=== PATIENT | male | born 1945 | race Caucasian/White ===

== ENCOUNTER 2017-11-15 06:41 | Inpatient (IN) | payer MEDICARE, MEDICAID ==
[~2017-11-15] VITALS: Ht 180.3 cm; Wt 104.3 kg
[2017-11-15] VITALS (7 sets, daily range): BP systolic 104–149; BP diastolic 50–76
[2017-11-15] MEDS ORDERED: TRANEXAMIC ACID 3,000 MG in SODIUM CHLORIDE IRRIG SOLUTION 70 ML IR ONE (07:30)
[2017-11-15] MEDS ORDERED: oxyCODONE HCL SR 10MG TAB.SR.12H PO ONE (08:10)
[2017-11-15] MEDS ORDERED: CELECOXIB 100 MG CAPSULE ONE (08:11)
[2017-11-15] MEDS ORDERED: CEFAZOLIN SODIUM/DEXTROSE,ISO 50 ML IV ONE (08:11)
[2017-11-15] MEDS ORDERED: ACETAMINOPHEN 325 MG TABLET ONE (08:12)
[2017-11-15] MEDS ORDERED: BUPIVACAINE 0.75% DEXT-PF 2 ML AMPUL ONE (08:38)
[2017-11-15] MEDS ORDERED: MORPHINE SULFATE/PF 10 MG/10ML (1MG/ML) AMPUL ONE (08:38)
[2017-11-15] MEDS ORDERED: BUPIVACAINE 0.25% 75 MG/30 ML VIAL ONE (08:39)
[2017-11-15] MEDS ORDERED: KETOROLAC TROMETHAMINE INJ 30 MG/ML VIAL ONE (08:39)
[2017-11-15] MEDS ORDERED: BACITRACIN 50000 UNITS/VIAL ONE (08:39)
[2017-11-15] MEDS ORDERED: DESFLURANE 240 ML BOTTLE IH ONE (09:24)
[2017-11-15] MEDS ORDERED: SEVOFLURANE 250 ML BOTTLE IH ONE (09:24)
[2017-11-15] MEDS ORDERED: HYDROMORPHONE INJ 2 MG/ML DISP.SYRIN ONE ×2 (10:46→10:58)
[2017-11-15] MEDS ORDERED: COLACE 250 MG CAPSULE PO PRN (11:30)
[2017-11-15] MEDS ORDERED: SENOKOT 8.6 MG TABLET PO PRN (11:30)
[2017-11-15] MEDS ORDERED: diphenhydrAMINE HCL 50 MG/ML VIAL IM PRN (11:30)
[2017-11-15] MEDS ORDERED: ONDANSETRON HCL/PF 4 MG/2 ML VIAL IVP PRN (11:30)
[2017-11-15] MEDS ORDERED: TYLENOL 650 MG TABLET PO PRN (11:30)
[2017-11-15] MEDS ORDERED: AMBIEN 5 MG TABLET PO PRN (11:30)
[2017-11-15] MEDS ORDERED: HYDROMORPHONE 1 MG/1 ML DISP.SYRIN IV PRN (11:30)
[2017-11-15] MEDS ORDERED: ZOFRAN 4mg/2ML IV PRN (11:30)
[2017-11-15] MEDS ORDERED: NALOXONE HCL 0.4 MG/ML AMPUL IV PRN ×2 (11:30→13:00)
[2017-11-15] MEDS ORDERED: DULCOLAX 10 MG/SUPP.RECT RC PRN (11:30)
--- NOTE | 2017-11-15 12:00 | NUR ---
tele project technician: notes received pt from recovery room with dx: s/p right tka. dressing to right lower ext in place. no drainage/discharge noted. pt had a spinal anesthesia and will be admitted in tele for 24 hours per protocol. awake, a/ox4. no c/o pain a this time. p.t. tx ordered. vss. no s/s of resp. distress noted. oriented to room and surroundings. will continue to monitor.
--- NOTE | 2017-11-15 12:15 | NUR ---
tele combat control: notes place pt on tele sr=[id number] with 1st degree av block. lunch ordered. instructed to call for assistance. will continue to monitor.
[2017-11-15] MEDS ORDERED: diphenhydrAMINE HCL 25 MG CAPSULE PO PRN (12:30)
[2017-11-15] MEDS ORDERED: MAGNESIUM HYDROXIDE 30 ML UDC PO PRN (12:30)
[2017-11-15] MEDS ORDERED: HYDROCODONE/APAP 10/325MG 1 EA TABLET PO PRN (12:30)
[2017-11-15] MEDS ORDERED: CLONIDINE HCL 0.1 MG TABLET PO PRN (12:30)
[2017-11-15] MEDS ORDERED: MAG HYDROX/AL HYDROX/SIMETH 30 ML UDC PO PRN (12:30)
[2017-11-15] MEDS ORDERED: BISACODYL SUPP (10 MG) 10 MG/SUPP.RECT SUPP.RECT RC PRN ×2 (12:30→14:00)
[2017-11-15] MEDS ORDERED: MENTHOL/CETYLPYRD (CEPACOL) 1 LOZ LOZENGE MM PRN (12:30)
[2017-11-15] MEDS ORDERED: MORPHINE SULFATE INJ 4 MG/ML DISP.SYRIN IM PRN (12:30)
[2017-11-15] MEDS: oxyCODONE IR immediate release 5 MG PO PRN (12:58)
--- NOTE | 2017-11-15 12:58 | NUR ---
tele mission planner: notes still awaiting for glass belt sander. f/u made to farrah (pharmacist). pt c/o 03/14 right knee pain, medicated with oxy ir 5mg po as ordered. instructed to call for assistance. will continue to monitor.
[2017-11-15] MEDS ORDERED: TRAMADOL HCL 50 MG TABLET PO PRN (13:00)
--- NOTE | 2017-11-15 13:40 | NUR ---
PT INSTRUCTED IS DID 1500 X 10 BREATHS WITH GOOD EFFORT
--- NOTE | 2017-11-15 13:58 | NUR ---
m/s recreation counselor: notes pt verbalized relief. p.t. in room at this time. cpm applied by therapist.
[2017-11-15] MEDS ORDERED: POLYETHYLENE GLYCOL 3350 17 GM POWD.PACK PO SCH (14:00)
[2017-11-15] MEDS ORDERED: BISACODYL (5 MG) 5 MG TABLET.DR PO PRN (14:00)
[2017-11-15] MEDS ORDERED: hydrALAZINE HCL 25 MG TABLET PO PRN (14:30)
[2017-11-15] MEDS: IV D5/0.45 NACL 1,000 ML IV PRN (14:31)
[2017-11-15] MEDS: HYDROMORPHONE MDV 30 MG in IV NS 0.9% 15 ML, PCA TOTAL VOLUME 1 BAG IV PRN ×3 (14:46)
--- NOTE | 2017-11-15 14:46 | NUR ---
m/s lot technician: notes prior to medical scientific liaison dilaudid 0.2mg dose with no loading dose, pt educated on how to use and educated on side effects by rn, pt verbalized understanding. instructed to call for assistance. will continue to monitor.
[2017-11-15] MEDS: DOCUSATE SODIUM 100 MG CAPSULE PO SCH (17:00)
--- NOTE | 2017-11-15 17:00 | NUR ---
tele catering service manager: notes pt resting comfortable with cpm machine on. voiced no discomfort. pt hasn't pushed his chair inspector and leveler, but aware if has pain. instructed to call for assistance. will continue to monitor.
[2017-11-15] MEDS: ANCEF 1 G in IV D5W 50 ML IV SCH (17:18)
[2017-11-15] MEDS: LOSARTAN POTASSIUM 50 MG TABLET PO SCH (17:35)
[2017-11-15] MEDS: METOPROLOL SUCCINATE 25 MG TAB.SR.24H PO SCH (17:35)
--- NOTE | 2017-11-15 18:15 | NUR ---
tele associate designer: notes pt remains on stable condition. denies any pain or any discomfort. pt hasn't had a dose of wig sales consultant of 0.2mg. educated pt on how to use wig sales consultant, but he has no pain as stated. needs attended. instructed to call for assistance. will continue to monitor.
--- NOTE | 2017-11-15 19:00 | NUR ---
tele afternoon nanny: notes pt c/o burning sensation upon urination, pt able to void. pt has hx of bph and request for troy cathether if still unable to void more. report given to erica martinez) for continuity of care. instructed to call for assistance. will continue to monitor.
--- NOTE | 2017-11-15 19:00 | NUR ---
LOAN EXPEDITOR NOTES CPM MACHINE OFF PER PATIENT REQUEST.
--- NOTE | 2017-11-15 19:35 | NUR ---
ROPER OPERATOR NOTES RECEIVED PATIENT IN BED , AWAKE ALERT AND ORIENTED X 4, ON CPM BUT PER PATIENT REQUEST TO REMOVE IT FOR NOW, CPM REMOVED, PATIENT ASSISTED WITH URINAL USE AT EDGE OF BED, AND PER PATIENT WANTED TO SIT IN CHAIR, PATIENT SAFELY TRANSFERRED TO CHAIR, AVOIDING WEIGHT TO RIGHT LEG WITH ASSISTANCE. IV SITE TO LEFT HAND INTACT AND PATENT , NO REDNESS NO INFILTRATION PRESENT, IVF FLUIDS RUNNING ORDERED,HERMELINDO BANDAGE TO RIGHT LEG INTACT AND DRY, PATIENT URINATED 300 ML YELLOW CLEAR, ORIENTED TO STAFF AND CALL LIGHT KEPT WITHIN REACH, SAFETY PRECAUTIONS IN PLACE ,FLUIDS OFFERED TOLERATED,, RESPIRATORY RATE 24 ON 02 VIA NC, PATIENT DENIES FEELING SHORT OF BREATH. NO CHANGE IN LOC NOTED ABLE TO HOLD CONVERSATION AND DENIES PAIN AT THIS TIME, WILL CONTINUE TO MONITOR. Addendum: 11/16/17 at 0058 by MELANIE ALVAREZ RN opening tele notes patient on continuous pulse ox monitoring x 24 hours
[2017-11-15] MEDS: TAMSULOSIN 0.4 MG CAP.SR.24H PO SCH (19:49)
--- NOTE | 2017-11-15 20:00 | NUR ---
TURKEY PINNER NOTES PATIENT NOTED TO USE ONE TIME 0.2MG OF MONITOR AND STORAGE BIN TENDER PUMP ,NOTED WITH FACIAL GRIMACING, WILL CONTINUE TO REASSESS.
--- NOTE | 2017-11-15 20:03 | NUR ---
MUNITIONS WORKER NOTES PATIENT REQUESTING FOR FLOMAX EARLY, PHARMACY MADE AWARE. GIVEN AT NEW TIME.
--- NOTE | 2017-11-15 20:30 | NUR ---
FLAME CUTTING MACHINE OPERATOR NOTES NOTED SENIOR CLINICIAN DOSE EFFECTIVE, PATIENT NOTED COMFORTABLE , DENIES PAIN OR DISCOMFORT AT THIS TIME.
[2017-11-15] MEDS ORDERED: HYDROMORPHONE INJ 2 MG/ML DISP.SYRIN IV PRN (21:00)
--- NOTE | 2017-11-15 21:21 | NUR ---
LEGAL OFFICE ADMINISTRATOR NOTES AWARE OF 1999 BLOOD PRESSURE OF 146/75 WITH NEW ORDER FOR NORVASC AT 2200 , NOTED AND CARRIED OUT.
--- NOTE | 2017-11-15 22:00 | NUR ---
LAMINATION INSPECTOR NOTES CPM ON, PER PATIENT REQUEST.
[2017-11-15] MEDS: AMLODIPINE BESYLATE 10 MG TABLET PO SCH (22:07)
[2017-11-15] MEDS: ASPIRIN EC 325 MG TABLET.DR PO SCH (22:07)
[2017-11-15] MEDS: PANTOPRAZOLE 40 MG TABLET.DR PO SCH (22:07)
[2017-11-16] VITALS: BP 154/78
--- NOTE | 2017-11-16 | NUR ---
DIRECTOR OF PUBLICATIONS NOTES CPM OFF.
[2017-11-16] MEDS: IV D5/0.45 NACL 1,000 ML IV PRN (00:25)
[2017-11-16] MEDS: ANCEF 1 G in IV D5W 50 ML IV SCH (00:25)
--- NOTE | 2017-11-16 00:30 | NUR ---
REGIONAL MARKETING DIRECTOR NOTES PER PATIENT REQUEST CPM ON
--- NOTE | 2017-11-16 03:30 | NUR ---
SENIOR DESIGNER/ART DIRECTOR NOTES PER PATIENT REQUEST CPM OFF.
[2017-11-16 04:00] VITALS: BP 131/72
--- NOTE | 2017-11-16 05:34 | NUR ---
WIND SCIENCE AND PLANNING NOTES PER PATIENT WILL ASK MORNING MD FOR VILLANUEVA CATHETER NOTED 2230 ML OF OUTPUT, MADE PATIENT AWARE OUTPUT IS WITHIN RANGE, ALSO MADE PATIENT AWARE THAT I CAN CALL MD, REFUSED STATED " HE DID NOT WANT AT THIS TIME HE WILL ASK IN AM" ABDOMEN ASSESSED, NOTED SOFT, NON TENDER, WILL CONTINUE TO MONITOR.
--- NOTE | 2017-11-16 06:31 | NUR ---
MOBILE PAINT SPECIALIST NOTES NOTED PATIENT UTILIZED TELEPHONE TRIAGE NURSE PUMP 4 TIMES DURING SHIFT, 0.8MG TOTAL, FOR PAIN RATING AT 7.NOTED EFFECTIVE WHEN USED.
--- NOTE | 2017-11-16 06:33 | NUR ---
SHEET ROCK HANGER CLOSING NOTES PATIENT IN BED , AWAKE ALERT AND ORIENTED X 4, CPM OFF AT THIS TIME PER PATIENT REQUEST TO REMOVE IT FOR NOW, CPM REMOVED, PATIENT ASSISTED WITH URINAL USE AT EDGE OF BED THROUGH OUT SHIFT TOTAL URINE OUTPUT 223O, IV SITE TO LEFT HAND INTACT AND PATENT , NO REDNESS NO INFILTRATION PRESENT, IVF FLUIDS RUNNING ORDERED,HERMELINDO BANDAGE TO RIGHT LEG INTACT AND DRY, URINE YELLOW CLEAR, ASKED PATIENT IF ALL NEEDS ATTENDED AT THIS TIME ,PER PATIENT YES,CALL LIGHT KEPT WITHIN REACH, SAFETY PRECAUTIONS IN PLACE ,FLUIDS OFFERED TOLERATED,RESPIRATORY RATE 18 ON 02 VIA 2 L NC, PATIENT DENIES FEELING SHORT OF BREATH. NO CHANGE IN LOC NOTED ABLE TO HOLD CONVERSATION AND DENIES PAIN AT THIS TIME PT UTILIZED MANAGER DEPARTMENT FOR PAIN MANAGEMENT , WILL CONTINUE TO MONITOR AND ENDORSE TO NEXT SHIFT. PATIENT REMAINS COMFORTABLE AT THIS TIME, ON CONTINUOUS 02 SAT MONITORING,WILL NO EPISODES OF LOW SATURATION NOTED THROUGHOUT SHIFT , REMAINED WITHIN NORMAL LIMITS.
[2017-11-16 06:44] LABS: CALCIUM, SERUM 8.6 mg/dL (8.5-10.1); CARBON DIOXIDE 27 mmol/L (21-32); CHLORIDE 103 mmol/L (98-107); CREATININE 0.8 mg/dL (0.6-1.3); GLUCOSE 151 mg/dL (74-106); MAGNESIUM 2.1 mg/dL (1.8-2.4); PHOSPHORUS 3.4 mg/dL (2.5-4.9); POTASSIUM 4.6 mmol/L (3.5-5.1); SODIUM SERUM 138 mmol/L (136-145); UREA NITROGEN, BLOOD 12 mg/dL (7-18)
[2017-11-16 07:13] LABS: BASOPHILS % (AUTO) 0.1 % (0.0-2.0); EOSINOPHILS % (AUTO) 0.5 % (0.0-6.0); HEMATOCRIT 36 % (39-51); HEMOGLOBIN 12.6 g/dL (13.5-17.5); LYMPHOCYTES # (AUTO) 0.8 /CMM (0.8-4.8); LYMPHOCYTES % (AUTO) 6.2 % (20.0-44.0); MEAN CORPUSCULAR HGB CONC 35 g/dl (31.0-36.0); MEAN CORPUSCULAR VOLUME 87 fL (80-96); MONOCYTES % (AUTO) 8.1 % (2.0-12.0); NEUTROPHILS # (AUTO) 10.6 /CMM (1.8-8.9); NEUTROPHILS % (AUTO) 85.1 % (43.0-81.0); PLATELET COUNT (AUTO) 345 /CMM (150-450); RDW COEFFICIENT OF VARIATION 13.2 (11.5-15.0); RED BLOOD CELL COUNT(AUTO) 4.17 MIL/uL (4.5-6.0); WHITE BLOOD COUNT (AUTO) 12.4 K/uL (4.3-11.0)
[2017-11-16 08:00] VITALS: BP 117/70
--- NOTE | 2017-11-16 08:00 | NUR ---
tele retail sales assistant: initial assessment received pt in bed awake, a/ox4. no c/o pain/discomfort. s/p right tka. chau wrap dressing to right lower ext intact. no drainage/discharge noted. pt remains on log sorter dilaudid 0.2mg with no loading dose, no continuous rate, no basal. no s/s of resp. distress noted. instructed to call for assistance. will continue to monitor.
[2017-11-16] MEDS ORDERED: ALPRAZOLAM 0.5 MG TABLET PO ONE (08:30)
[2017-11-16] MEDS: FINASTERIDE (5 MG) 5 MG TABLET PO SCH (08:54)
[2017-11-16] MEDS: LOSARTAN POTASSIUM 50 MG TABLET PO SCH ×2 (08:54→17:28)
[2017-11-16] MEDS: ASPIRIN EC 325 MG TABLET.DR PO SCH ×2 (08:54→17:28)
[2017-11-16] MEDS: DOCUSATE SODIUM 100 MG CAPSULE PO SCH ×3 (08:55→17:27)
[2017-11-16] MEDS: METOPROLOL SUCCINATE 25 MG TAB.SR.24H PO SCH ×2 (08:55→17:28)
[2017-11-16] MEDS ORDERED: HYDROCODONE/APAP 5/325MG 1 EACH TABLET PO PRN (09:00)
[2017-11-16] MEDS ORDERED: AMLODIPINE BESYLATE 10 MG TABLET PO SCH (09:00)
--- NOTE | 2017-11-16 12:20 | NUR ---
tele skid strapper: md visit seen and examined by max (scott) at this time. pt still insisting on troy, but pt able to void. front end developer explained and educated pt on troy catheter use, pt verbalized understanding.
[2017-11-16] MEDS: HYDROMORPHONE MDV 30 MG in IV NS 0.9% 15 ML, PCA TOTAL VOLUME 1 BAG IV PRN ×3 (14:25)
--- NOTE | 2017-11-16 15:30 | NUR ---
tele geotechnical laboratory technician: notes p.t. tx done, elena. well.
[2017-11-16 16:00] VITALS: BP 133/77
--- NOTE | 2017-11-16 16:25 | NUR ---
tele hand brush filler: notes family visiting at this time.
--- NOTE | 2017-11-16 16:30 | NUR ---
m/s purchase price analyst: notes o.t. in room for tx.
[2017-11-16] MEDS: oxyCODONE IR immediate release 5 MG PO PRN (17:28)
--- NOTE | 2017-11-16 17:28 | NUR ---
tele painter decorator: notes c/o 03/14 right knee pain, medicated with oxy ir 5mg po as ordered. cpm taken off per pt's request, assisted to chair. call light within reach. refused dinner. family brought outside food. instructed to call for assistance. will continue to monitor.
--- NOTE | 2017-11-16 18:28 | NUR ---
tele gis professor: notes pt able to propel himself to bed. voiced no discomfort. instructed to call for assistance. will continue to monitor.
--- NOTE | 2017-11-16 19:25 | NUR ---
TELE/RN NOTES RECEIVED PT. SITTING UP IN CHAIR. PT. IS AWAKE, ALERT AND ORIENTED X4. BREATHING EVEN AND UNLABORED ON 2LPM O2 VIA NC. NO SOB, RESPIRATORY DISTRESS OR COMPLAINTS OF PAIN NOTED AT THIS TIME. PT. WITH LEFT HAND 20 GAUGE PERIPHERAL IV CONNECTED TO AQUARIST PUMP. PT. WITH EXTERNAL CURRICULUM WRITER PRESENT AND INTACT. CURRENT RHYTHM = SINUS RHYTHM HR 99. PT. WITH RIGHT LEG DRESSING PRESENT, CLEAN, DRY AND INTACT. PER DAYSHIFT NURSE MD ONLY TO CHANGE. PT. WITH CALL LIGHT WITHIN REACH, WILL CONTINUE TO MONITOR.
[2017-11-16] MEDS: TAMSULOSIN 0.4 MG CAP.SR.24H PO SCH (19:46)
[2017-11-16 20:43] VITALS: BP 125/66
--- NOTE | 2017-11-16 22:45 | NUR ---
TELE/RN NOTES PT. REQUESTING TO BE DISCONNECTED FROM FIRE ENGINE OPERATOR PUMP AND CONTINUOUS PULSE OX. PT. HAS NO COMPLAINTS OF PAIN AT THIS TIME. PT. STATES HE DOESN'T NEED THE FIRE ENGINE OPERATOR PUMP ANYMORE. PT. IS BREATHING EVEN AND UNLABORED ON 2LPM O2 VIA NC. NO SOB OR RESPIRATORY DISTRESS NOTED AT THIS TIME. PT. O2 SAT 95%. DISCONNECTED PT. FROM FIRE ENGINE OPERATOR PUMP AND CONTINUOUS PULSE OX REQUESTED. WILL CONTINUE TO MONITOR.
[2017-11-16] MEDS: AMLODIPINE BESYLATE 10 MG TABLET PO SCH (23:01)
[2017-11-16] MEDS: PANTOPRAZOLE 40 MG TABLET.DR PO SCH (23:01)
[2017-11-17 00:44] VITALS: BP 124/73
[2017-11-17 05:04] VITALS: BP 119/63
[2017-11-17 06:32] LABS: BASOPHILS % (AUTO) 0.1 % (0.0-2.0); HEMATOCRIT 34 % (39-51); HEMOGLOBIN 11.7 g/dL (13.5-17.5); LYMPHOCYTES % (AUTO) 8.7 % (20.0-44.0); MEAN CORPUSCULAR HGB CONC 35 g/dl (31.0-36.0); MEAN CORPUSCULAR VOLUME 87 fL (80-96); MONOCYTES # (AUTO) 1.3 /CMM (0.1-1.30); MONOCYTES % (AUTO) 10.8 % (2.0-12.0); NEUTROPHILS # (AUTO) 9.6 /CMM (1.8-8.9); NEUTROPHILS % (AUTO) 80.4 % (43.0-81.0); PLATELET COUNT (AUTO) 335 /CMM (150-450); RDW COEFFICIENT OF VARIATION 13.4 (11.5-15.0); RED BLOOD CELL COUNT(AUTO) 3.86 MIL/uL (4.5-6.0); WHITE BLOOD COUNT (AUTO) 11.9 K/uL (4.3-11.0)
--- NOTE | 2017-11-17 06:46 | NUR ---
TELE/RN NOTES PT. IS LYING IN BED. BREATHING EVEN AND UNLABORED ON 2LPM O2 VIA NC. NO SOB, RESPIRATORY DISTRESS OR COMPLAINTS OF PAIN NOTED AT THIS TIME. PT. WITH LEFT HAND 20 GAUGE IV SALINE LOCK. PT. CONTINUES TO REFUSE BOILER CONTROL ROOM OPERATOR PUMP AT THIS TIME. PT. STATES HE HAS NO PAIN AT THIS TIME. PT. WITH EXTERNAL FLITCH HANGER PRESENT AND INTACT. CURRENT RHYTHM = SINUS RHYTHM HR 93. PT. WITH RIGHT LEG DRESSING PRESENT, CLEAN, DRY AND INTACT. ALL PT. NEEDS MET. BED LOCKED AND IN LOWEST POSITION, SIDE RAILS UP X2, CALL LIGHT WITHIN REACH, WILL ENDORSE TO DAYSHIFT NURSE FOR CONTINUITY OF CARE.
[2017-11-17 06:51] LABS: CALCIUM, SERUM 8.1 mg/dL (8.5-10.1); CARBON DIOXIDE 23 mmol/L (21-32); CHLORIDE 101 mmol/L (98-107); CREATININE 0.9 mg/dL (0.6-1.3); GLUCOSE 147 mg/dL (74-106); POTASSIUM 3.8 mmol/L (3.5-5.1); SODIUM SERUM 136 mmol/L (136-145); UREA NITROGEN, BLOOD 16 mg/dL (7-18)
--- NOTE | 2017-11-17 07:36 | NUR ---
FOOD MANAGER OPENING NOTES RECEIVED PATIENT IN BED AWAKE, ALERT AND ORIENTED X4. ABLE TO MAKE NEEDS KNOWN, NO C/O PAIN OR DISCOMFORTS VOICED AT THIS TIME. ON TELE-MONITORING WITH CURRENT READING OF SR WITH HR OF 89. ON 02 VIA N/C AT 2LPN, RESPIRATION REGULAR AND UNLABORED. NO SOB NOTED. IV ACCESS ON LEFT HAND G #20 INTACT AND PATENT. DRESSING ON RIGHT LEG INTACT, CLEAN AND DRY. HOB ELEVATED. BED IN LOW/LOCKED WITH SIDE RAILS UP X2. CALL LIGHT WITHIN REACH. WILL CONTINUE TO MONITOR.
[2017-11-17 08:00] VITALS: BP 130/73
[2017-11-17] MEDS: ASPIRIN EC 325 MG TABLET.DR PO SCH ×2 (08:45→17:37)
[2017-11-17] MEDS: LOSARTAN POTASSIUM 50 MG TABLET PO SCH ×2 (08:46→17:31)
[2017-11-17] MEDS: FINASTERIDE (5 MG) 5 MG TABLET PO SCH (08:46)
[2017-11-17] MEDS: DOCUSATE SODIUM 100 MG CAPSULE PO SCH (08:47)
[2017-11-17] MEDS: METOPROLOL SUCCINATE 25 MG TAB.SR.24H PO SCH ×2 (08:47→17:31)
[2017-11-17] MEDS: oxyCODONE IR immediate release 5 MG PO PRN (08:57)
[2017-11-17 16:00] VITALS: BP 144/64
[2017-11-17] MEDS ORDERED: PHENAZOPYRIDINE HCL 200 MG TABLET PO ONE (16:36)
[2017-11-17] MEDS: HYDROMORPHONE MDV 30 MG in IV NS 0.9% 15 ML, PCA TOTAL VOLUME 1 BAG IV PRN ×3 (16:59)
[2017-11-17] MEDS ORDERED: PHENAZOPYRIDINE HCL 200 MG TABLET PO PRN (17:00)
--- NOTE | 2017-11-17 19:06 | NUR ---
MS RN CLOSING NOTES PATIENT IN BED AWAKE AND WATCHING TV. A/O X4. ABLE TO MAKE NEEDS KNOWN. ALL NEEDS AND CARE ATTENDED WELL. URINE SPECIMEN FOR U/A AND CX COLLECTED, CALL LAB TO PICK SPECIMEN FROM [facility]. ON 02 VIA N/C AT 2LPN, RESPIRATION REGULAR AND UNLABORED. NO SOB NOTED. IV ACCESS ON LEFT HAND G #20 INTACT AND PATENT. DRESSING ON RIGHT LEG INTACT, CLEAN AND DRY. CPM MACHINE APPLIED ON AND OFF DURING THE DAY WITH NO PROBLEMS VOICED. HOB ELEVATED. BED IN LOW/LOCKED WITH SIDE RAILS UP X2. CALL LIGHT WITHIN REACH. WILL ENDORSE TO ECONOMIC DEVELOPER NURSE FOR ART.
--- NOTE | 2017-11-17 19:30 | NUR ---
RN NOTE; RECEIVED PT IN BED A, OX4. BREATHING EVENLY. NO SOB. NAD .SKIN WARN AND DRY. NO C/O PAIN OR DISCOMFORT AT THIS TIME. DRESSING ON RLE CDI. AWAITING FOR U/A RESULT. TO F/U. ASSISTED W/ ADLS. CALL LIGHT WITHIN REACH .WILL CONT TO MONITOR .
[2017-11-17 20:00] VITALS: BP 126/72
[2017-11-17 20:07] LABS: APPEARANCE,URINE CLEAR (CLEAR); BILIRUBIN,URINE NEGATIVE (NEGATIVE); BLOOD, URINE 3+ Ery/uL (NEGATIVE); COLOR,URINE YELLOW (YELLOW); KETONES,URINE NEGATIVE (NEGATIVE); LEUKOCYTE ESTERASE ,URINE NEGATIVE (NEGATIVE); NITRITE, URINE NEGATIVE (NEGATIVE); PROTEIN,URINE TRACE mg/dl (NEGATIVE); UGLUCOSE NEGATIVE (NEGATIVE); UROBILINOGEN,URINE 0.2 EU/dL (0.2)
[2017-11-17 20:44] LABS: BACTERIA,URINE Rare /HPF (None Seen); RBC,URINE 51-80 /HPF (0-2); SQUAMOUS EPITHELIAL CELL,UR Rare /HPF (None Seen)
[2017-11-17] MEDS: TAMSULOSIN 0.4 MG CAP.SR.24H PO SCH (21:01)
[2017-11-17] MEDS: PANTOPRAZOLE 40 MG TABLET.DR PO SCH (21:01)
[2017-11-17] MEDS: AMLODIPINE BESYLATE 10 MG TABLET PO SCH (21:01)
--- NOTE | 2017-11-17 21:30 | NUR ---
CALLED JOHN MCGHEE AND RELAYED THE U/A RESULT. PER HER SHE WILL F/U AND WILL PLACE AN ORDER FOR ATB. WILL F/U.
[2017-11-17] MEDS ORDERED: CEFTRIAXONE 1 G in IV D5W 50 ML IV SCH (23:00)
[2017-11-17] MEDS ORDERED: CEFTRIAXONE 1 G VIAL ONE (23:26)
[2017-11-17] MEDS: PHENAZOPYRIDINE HCL 200 MG TABLET PO PRN (23:37)
--- NOTE | 2017-11-17 23:37 | NUR ---
PYRIDIUM GIVEN ALONG WITH THE ATB FOR DYSURIA PER PT'S REQUEST.
--- NOTE | 2017-11-18 06:35 | NUR ---
PT IN BED AWAKE AND ALERT. STABLE. BREATHING EVENLY. NO SOB. NO ACUTE EVENT DURING THE NIGHT . NO C/O PAIN AT THIS TIME HOWEVER W/ ONGOING C/O DYSURIA. DRESSING REMAINED C.D.I. NEEDS ATTENDED. ASSISTED W/ ADLS. BED LOW LOCKED. CALL LIGHT WITHIN REACH,.WILL CONT TO MONITOR AND WILL ENDORSE TO AM SHIFT FOR ART .
--- NOTE | 2017-11-18 07:34 | NUR ---
MS RN OPENING NOTE PATIENT IS ALERT AND ORIENTED x4. S/P RIGHT TKA WITH DR. TROY NO PAIN AT THIS TIME. NO SOB OR DISTRESS NOTED. CALL LIGHT WITHIN REACH AT ALL TIMES. SAFETY MEASURES IMPLEMENTED. ABLE TO COMMUNICATE NEEDS. SURGICAL DRESSING IN PLACE ON RIGHT TKA AND KEPT CLEAN DRY AND INTACT. IV INTACT AND PATENT NO REDNESS OR SWELLING NOTED. TO BE DISCHARGED TODAY TO [facility]. WILL CONTINUE TO MONITOR THROUGHOUT SHIFT
[2017-11-18 08:00] VITALS: BP 136/72
[2017-11-18] MEDS: FINASTERIDE (5 MG) 5 MG TABLET PO SCH (09:13)
[2017-11-18] MEDS: PHENAZOPYRIDINE HCL 200 MG TABLET PO PRN (09:13)
[2017-11-18 09:14] VITALS: BP 136/72
[2017-11-18] MEDS: LOSARTAN POTASSIUM 50 MG TABLET PO SCH (09:14)
[2017-11-18] MEDS: ASPIRIN EC 325 MG TABLET.DR PO SCH (09:14)
[2017-11-18] MEDS: oxyCODONE IR immediate release 5 MG PO PRN (09:14)
[2017-11-18] MEDS: METOPROLOL SUCCINATE 25 MG TAB.SR.24H PO SCH (09:14)
--- NOTE | 2017-11-18 09:15 | NUR ---
MS RN NOTE PATIENT REQUESTING PYRIDIUM AND OXY IR. BOTH GIVEN TO PATIENT. WILL REASSESS FOR PAIN
[2017-11-18] MEDS ORDERED: CIPROFLOXACIN HCL 250 MG TABLET PO SCH (10:40)
[2017-11-18] MEDS ORDERED: ASPI-869 PO (10:59)
[2017-11-18] MEDS ORDERED: PHEN-895 PO (10:59)
[2017-11-18] MEDS ORDERED: TAMS-12 PO (10:59)
[2017-11-18] MEDS ORDERED: OXYC-128 PO (10:59)
[2017-11-18] MEDS ORDERED: DIPH25CA49 PO (10:59)
[2017-11-18] MEDS ORDERED: CIPR250T4 PO (10:59)
[2017-11-18] MEDS ORDERED: FINA5TAB3 PO (10:59)
[2017-11-18] MEDS ORDERED: AMLO10TA6 PO (10:59)
[2017-11-18] MEDS ORDERED: METO25TA3 PO (10:59)
[2017-11-18] MEDS ORDERED: LOSA50TA3 PO (10:59)
[2017-11-18] MEDS ORDERED: MUPIROCIN OINT 2% 22 GM TUBE SCH (11:00)
[2017-11-18] MEDS ORDERED: oxyCODONE IR immediate release 5 MG PO ONE (12:23)
--- NOTE | 2017-11-18 12:28 | NUR ---
MS RN NOTE REPORT GIVEN TO NASIR AT [facility] . BOOK OR SCRIPT EDITOR TIME FOR AMBULANCE 2 PM.
--- NOTE | 2017-11-18 14:37 | NUR ---
CREDIT PRODUCT ANALYST NOTE PATIENT DISCHARGED TO [facility] AND REPORT GIVEN TO YURIDIA BEST. ALL DISCHARGE INSTRUCTIONS GIVEN TO PATIENT AND RN KITCHEN MECHANIC, BOTH ABLE TO RETURN INSTRUCTIONS BACK. ALL DUE MEDICATIONS GIVEN ORDERED. ALL NURSING CARE NEEDS ATTENDED TO NEEDED. IV REMOVED, SKIN INTACT. ALL BELONGINGS ACCOUNTED FOR AT DISCHARGE. FAMILY NOTIFIED OF DISCHARGE. ABLE TO COMMUNICATE NEEDS. LEFT VIA AMBULANCE.
== END 2017-11-18 14:35 | DRG 470 ==
LOC: DS 06:41 → MED 12:04 → TELE 12:09 → MED 11-17 09:01
PROVIDERS: ADMIT Specialist; ATTEND Specialist
PROC: 0SRC0J9 Replacement of Right Knee Joint with Synthetic Substitute, Cemented, Open Approach (ICD-10-PCS; principal; 2017-11-15 09:19)
DX: M17.11 Unilateral primary osteoarthritis, right knee (principal); N39.0 Urinary tract infection, site not specified; D72.829 Elevated white blood cell count, unspecified; E66.9 Obesity, unspecified; E78.5 Hyperlipidemia, unspecified; I10 Essential (primary) hypertension; Z68.32 Body mass index [BMI] 32.0-32.9, adult; N40.1 Benign prostatic hyperplasia with lower urinary tract symptoms
CPT/HCPCS: 36415; 80048-TC; 81000-TC; 83735-TC; 84100-TC; 85025-TC; 86921-TC; 87081-TC; 87086-TC; 88305-TC; 88311-TC; 97110-TC; 97116-TC; 97530-TC; 97535-TC; 97760-TC; A4216; A4217; A4606; A6402; C1713; J0690; J0696; J1100; J1170; J1200; J1885; J2274; J2310; J2405; J2704; J3490; J7060; L1830

== ENCOUNTER 2018-10-10 05:41 | Inpatient (IN) | payer MEDICAID, MEDICARE ==
[~2018-10-10] VITALS: Ht 177.8 cm; Wt 106.1 kg
[2018-10-10] VITALS (7 sets, daily range): BP systolic 127–153; BP diastolic 71–83
[~2018-10-10 05:41] MED LIST: AMLO10TA7 PO; ASPI-869 PO; CIPR250T4 PO; DIPH25CA49 PO; FINA5TAB3 PO; LOSA50TA3 PO; METO25TA3 PO; OXYC-128 PO; PHEN-895 PO; TAMS-12 PO
[2018-10-10] MEDS ORDERED: ANESTHESIA TRAY IN PYXIS 1 EA TRAY MC ONE (05:56)
[2018-10-10] MEDS ORDERED: BACITRACIN 50000 UNITS/VIAL ONE (05:57)
[2018-10-10] MEDS ORDERED: FENTANYL PF 250MCG/5ML AMPUL ONE (06:22)
[2018-10-10] MEDS ORDERED: BUPIVACAINE 0.75% DEXT-PF 2 ML AMPUL ONE (06:23)
[2018-10-10] MEDS ORDERED: ACETAMINOPHEN 325 MG TABLET PO ONE (06:30)
[2018-10-10] MEDS ORDERED: CELECOXIB 100 MG CAPSULE PO ONE (06:30)
[2018-10-10] MEDS ORDERED: oxyCODONE IR immediate release 5 MG PO ONE (06:30)
[2018-10-10] MEDS ORDERED: TAMS-12 PO (06:47)
[2018-10-10] MEDS ORDERED: AMLO10TA7 PO (06:47)
[2018-10-10] MEDS ORDERED: FINA5TAB3 PO (06:47)
[2018-10-10] MEDS ORDERED: ATOR20TA PO (06:47)
[2018-10-10] MEDS ORDERED: ASPI-1152 PO (06:47)
[2018-10-10] MEDS ORDERED: LOSA100T31 PO (06:47)
[2018-10-10] MEDS ORDERED: METO50TA16 PO (06:47)
--- NOTE | 2018-10-10 07:15 | NUR ---
Report received from retail shift leader RN. Per report, patient currently downstairs in OR for for left total knee arthroplasty. Room prepared for patient's arrival.
[2018-10-10] MEDS ORDERED: TRANEXAMIC ACID 3,000 MG in SODIUM CHLORIDE IRRIG SOLUTION 70 ML IR ONE (07:30)
[2018-10-10] MEDS ORDERED: CLONIDINE HCL 0.1 MG TABLET PO PRN (08:00)
[2018-10-10] MEDS ORDERED: diphenhydrAMINE HCL 25 MG CAPSULE PO PRN (08:00)
[2018-10-10] MEDS ORDERED: MENTHOL/CETYLPYRD (CEPACOL) 1 LOZ LOZENGE MM PRN (08:00)
[2018-10-10] MEDS ORDERED: DULCOLAX 10 MG/SUPP.RECT RC PRN (08:00)
[2018-10-10] MEDS ORDERED: TYLENOL 650 MG TABLET PO PRN (08:00)
[2018-10-10] MEDS ORDERED: AMBIEN 5 MG TABLET PO PRN (08:00)
[2018-10-10] MEDS: LOSARTAN POTASSIUM 50 MG TABLET PO SCH ×2 (08:02→16:39)
[2018-10-10] MEDS: DOCUSATE SODIUM 100 MG CAPSULE PO SCH ×2 (08:02→16:39)
[2018-10-10] MEDS: FINASTERIDE (5 MG) 5 MG TABLET PO SCH (08:02)
[2018-10-10] MEDS ORDERED: NALOXONE HCL 0.4 MG/ML AMPUL IV PRN (08:30)
[2018-10-10] MEDS ORDERED: BISACODYL (5 MG) 5 MG TABLET.DR PO PRN (08:30)
[2018-10-10] MEDS ORDERED: oxyCODONE IR immediate release 5 MG PO PRN (08:30)
[2018-10-10] MEDS ORDERED: MAG HYDROX/AL HYDROX/SIMETH 30 ML UDC PO PRN (08:30)
[2018-10-10] MEDS ORDERED: MAGNESIUM HYDROXIDE 30 ML UDC PO PRN (08:30)
[2018-10-10] MEDS: FAMOTIDINE (20 MG) 20 MG TABLET PO SCH ×2 (09:00→21:28)
[2018-10-10] MEDS: SENNOSIDES 8.6 MG TABLET PO SCH (09:00)
[2018-10-10] MEDS ORDERED: TRAM50TA2 PO (10:35)
[2018-10-10] MEDS ORDERED: METO25TA3 PO (10:35)
[2018-10-10] MEDS: IV D5/0.45 NACL 1,000 ML IV PRN ×2 (10:56→21:32)
--- NOTE | 2018-10-10 11:00 | NUR ---
rehabilitation program coordinator Opening Notes Received patient asleep from PACU, resting in bed. Semi-Fowlers position, supine. Alert and oriented x3, able to make needs known. No complaints of shortness of breath or pain at this time. Respirations even and unlabored on room air, no acute distress noted. External security monitor in place, current rhythm normal sinus rhythm at 72 bpm with occasional PVCs. Peripheral IV to the left wrist 20 gauge, intact, patent and infusing fluids from OR. Lopes catheter in place, intact, patent and draining clear, yellow urine. Dressing noted to the left leg (HERMELINDO wrap from thigh to foot) clean, dry and intact with ice pack to knee site. Updated patient on current plan of care and safety measures. Safety and fall precautions in place: bed in lowest and locked position, side rails up x2, bed alarm on, call light and personal possessions within reach. Reminded patient of safety measures, verbalized understanding. Post-op orders received and will intiaite. Monitor and perform vital signs per protocol. Will continue to monitor and intervene as needed.
[2018-10-10] MEDS: HYDROMORPHONE INJ 2 MG/ML DISP.SYRIN IV PRN ×4 (11:12→21:47)
[2018-10-10] MEDS: oxyCODONE IR immediate release 5 MG PO PRN ×4 (12:55→22:59)
[2018-10-10] MEDS: ANCEF 1 GM/50 ML D5W IV SCH ×2 (16:40)
[2018-10-10] MEDS ORDERED: TRAMADOL HCL 50 MG TABLET PO PRN (17:30)
[2018-10-10] MEDS: ZOFRAN 4mg/2ML IV PRN (17:59)
--- NOTE | 2018-10-10 19:29 | NUR ---
white mixing operator Closing Notes Received patient asleep from PACU, resting in bed. Semi-Fowlers position, supine. Alert and oriented x3, able to make needs known. No complaints of shortness of breath or pain at this time. Respirations even and unlabored on 2 lpm oxygen via nasal cannula, no acute distress noted. External cardiac surgeon in place, current rhythm sinus tachycardia with occasional PVCs. Peripheral IV to the right wrist 24 gauge, intact, patent and infusing fluids as ordered. Lopes catheter in place, intact, patent and draining clear, yellow urine. Dressing noted to the left leg (HERMELINDO wrap from thigh to foot) clean, dry and intact with ice pack to knee site. Updated patient on current plan of care and safety measures. Safety and fall precautions in place: bed in lowest and locked position, side rails up x2, bed alarm on, call light and personal possessions within reach. Reminded patient of safety measures, verbalized understanding. Will endorse to night time babysitter RN for continuity of care.
--- NOTE | 2018-10-10 19:35 | NUR ---
MEDICAL EXAMINER OPENING NOTES RECEIVED PT IN BED, AWAKE ALERT ORIENTED X4, BREATHING EVEN AND UNLABORED ON 2L O2 NC SATIN GAT 97, RATES LEG PAIN AT 5/10, MEDS TO BE GIVEN SOON. IV ACCESS I
[2018-10-10] MEDS: AMLODIPINE BESYLATE 10 MG TABLET PO SCH (21:28)
[2018-10-10] MEDS: METOPROLOL SUCCINATE 25 MG TAB.SR.24H PO SCH (21:29)
[2018-10-10] MEDS: POLYETHYLENE GLYCOL 3350 17 GM POWD.PACK PO SCH (21:29)
[2018-10-10] MEDS: TAMSULOSIN 0.4 MG CAP.SR.24H PO SCH (21:32)
[2018-10-10] MEDS ORDERED: TAMSULOSIN 0.4 MG CAP.SR.24H PO SCH (22:00)
--- NOTE | 2018-10-10 23:55 | NUR ---
CONT IV ACCESS ON THE L WRIST 20G WITH D5NS@125ML/HR. BED IN LOWEST LOCKED POSITION, CALL LIGHT WITHIN REACH AT ALL TIMES, WILL CONTINUE TO MONITOR
[2018-10-11] VITALS: BP 127/83
[2018-10-11] MEDS: ANCEF 1 GM/50 ML D5W IV SCH ×2 (00:49)
[2018-10-11] MEDS: HYDROMORPHONE INJ 2 MG/ML DISP.SYRIN IV PRN ×5 (00:50→20:07)
[2018-10-11] MEDS: ZOFRAN 4mg/2ML IV PRN ×2 (00:55→05:25)
[2018-10-11 04:15] VITALS: BP 123/84
[2018-10-11] MEDS: IV D5/0.45 NACL 1,000 ML IV PRN ×2 (05:33→17:28)
[2018-10-11 06:00] VITALS: BP 123/84
--- NOTE | 2018-10-11 06:15 | NUR ---
RUG SCRATCHER CLOSING NOTES PT REMAINS IN BED, SLEEPING INTERMITTENTLY, BREATHING EVEN AND UNLABORED ON 2L O2 NC, NO SOB, COUGH OR CONGESTION. IV ACCESS ON THE L WRIST 20G, WITH D51/2NS @125ML/HR. PAIN MANAGEMENT WORKING SO FAR, PT FEELING NAUSEOUS AFTER OXY, WILL HOLD OXY UNTIL AFTER BREAKFAST WHEN PT IS ABLE TO HOLD DOWN FOOD. BED IN LOWEST LOCKED POSITION, CALL LIGHT WITHIN REACH AT ALL TIMES. WILL ENDORSE TO DAY NURSE FOR ART
--- NOTE | 2018-10-11 07:10 | NUR ---
RN NOTES PATIENT IN BED ALERT ORIENTED X 3. NO ACUTE DISTRESS NOTED. BREATHING UNLABORED. NO SOB NOTED. SAFETY MEASURES IN PLACE. CALL LIGHT WITHIN REACH. WILL CONTINUE TO MONITOR ACCORDINGLY.
[2018-10-11 08:25] VITALS: BP 135/61
[2018-10-11] MEDS: ASPIRIN 325 MG TABLET PO SCH ×2 (08:41→17:17)
[2018-10-11] MEDS: DOCUSATE SODIUM 100 MG CAPSULE PO SCH ×2 (08:42→17:00)
[2018-10-11] MEDS: SENNOSIDES 8.6 MG TABLET PO SCH (08:43)
[2018-10-11] MEDS: FINASTERIDE (5 MG) 5 MG TABLET PO SCH (08:43)
[2018-10-11] MEDS: FAMOTIDINE (20 MG) 20 MG TABLET PO SCH ×2 (08:43→21:15)
[2018-10-11] MEDS: LOSARTAN POTASSIUM 50 MG TABLET PO SCH ×2 (08:44→17:19)
[2018-10-11] MEDS: oxyCODONE IR immediate release 5 MG PO PRN ×3 (08:57→22:29)
[2018-10-11] MEDS ORDERED: AMLODIPINE BESYLATE 10 MG TABLET PO SCH (09:00)
[2018-10-11] MEDS ORDERED: ASPIRIN EC 81 MG TABLET.DR PO SCH (09:00)
[2018-10-11] MEDS ORDERED: FINASTERIDE (5 MG) 5 MG TABLET PO SCH (09:00)
[2018-10-11] MEDS ORDERED: METOPROLOL SUCCINATE 25 MG TAB.SR.24H PO SCH (09:00)
[2018-10-11] MEDS ORDERED: Medication Not On Formulary EA (Losartan Potassium 100 MG) PO SCH (09:00)
--- NOTE | 2018-10-11 15:30 | NUR ---
HANDBAG FRAMES INSPECTOR NOTES RECEIVED NEW ORDERS FROM NERY ALEJO TO DISCONTINUE VILLANUEVA CATHETER ON 10/12/2018 @ 0600. NOTED AND CARRIED OUT.
[2018-10-11 15:39] VITALS: BP 139/83
--- NOTE | 2018-10-11 19:00 | NUR ---
RN NOTES PATIENT IN BED ALERT ORIENTED X 3. NO ACUTE DISTRESS NOTED. BREATHING UNLABORED. NO SOB NOTED. IV ACCESS PATENT AND INTACT, NO REDNESS OR SWELLING NOTED. DUE MEDICATIONS GIVEN, NO ASE NOTED. NEEDS ATTENDED AND ANTICIPATED. VILLANUEVA CATHETER INTACT, DRAINING WELL. SAFETY MEASURES IN PLACE. CALL LIGHT WITHIN REACH. ENDORSED TO NIGHT NURSE FOR CONTINUITY OF CARE.
--- NOTE | 2018-10-11 19:40 | NUR ---
MS/RN OPENING NOTES PT RECEIVED AWAKE, ON TABLET DEVICE. HOB ELEVATED. ON 2LPM O2 VIA NC, BREATHING EVEN AND UNLABORED. DENIES SOB. NOTES 02/11 PAIN TO LEFT KNEE, WILL ADMINISTER PAIN MEDS ORDERED. IV TO LEFT WRIST PATENT AND INTACT RUNNING IVF ORDERED. NO S/S OF INFILTRATION NOTED AT THIS TIME. VILLANUEVA IN PLACE AND DRAINING TO GRAVITY. DRESSING TO LEFT KNEE C/D/I AND LLE ELEVATED ON PILLOW. BED IN LOW/LOCKED POSITION WITH CALL LIGHT IN REACH. BILATERAL UPPER SIDE RAILS IN PLACE. WILL CONTINUE TO MONITOR
[2018-10-11] MEDS: TAMSULOSIN 0.4 MG CAP.SR.24H PO SCH (19:55)
[2018-10-11 20:00] VITALS: BP 144/81
[2018-10-11] MEDS: ATORVASTATIN 10 MG TABLET PO SCH (21:15)
[2018-10-11] MEDS: METOPROLOL SUCCINATE 25 MG TAB.SR.24H PO SCH (21:16)
[2018-10-11] MEDS: POLYETHYLENE GLYCOL 3350 17 GM POWD.PACK PO SCH (21:16)
[2018-10-11] MEDS: AMLODIPINE BESYLATE 10 MG TABLET PO SCH (21:17)
--- NOTE | 2018-10-11 22:30 | NUR ---
MS/RN NOTES PT C/O LEFT KNEE PAIN. REQUESTING OXY IR. VSS. ADMINISTERED ORDERED.
--- NOTE | 2018-10-12 | NUR ---
MS/RN NOTES PT ROUNDING DONE. PT ASLEEP, BREATHING EVEN AND UNLABORED. NO S/S OF ACUTE DISTRESS.
[2018-10-12] MEDS: HYDROMORPHONE INJ 2 MG/ML DISP.SYRIN IV PRN (02:41)
[2018-10-12] MEDS: IV D5/0.45 NACL 1,000 ML IV PRN ×2 (02:43→12:31)
--- NOTE | 2018-10-12 02:49 | NUR ---
MS/RN NOTES PT C/O 02/11 LEFT KNEE PAIN. ADMINISTERED PAIN MEDS ORDERED. WILL MONITOR FOR EFFECTIVENESS. NO OTHER NEEDS EXPRESSED AT THIS TIME.
--- NOTE | 2018-10-12 07:16 | NUR ---
MS/RN CLOSING NOTES PT AWAKE, HOB ELEVATED. RESTING COMFORTABLY IN BED. ON 2L O2 VIA NC, BREATHING EVEN AND UNLABORED. UNABLE TO DC 02 PER MD ORDER. PT DESAT'S TO 86% ON RA. PLACED BACK ON 02 VIA NC AND ENCOURAGED DEEP BREATHING. INCENTIVE SPIROMETER AT BEDSIDE. EDUCATED ON USE WITH RETURN DEMONSTRATION. LEFT LEG ELEVATED ON PILLOW, DRESSING C/D/I. IV TO LEFT WRIST PATENT AND INTACT RUNNING IVF ORDERED. PAIN MEDS PROVIDED PRN. PASSING GAS HOWEVER NO BM YET. DC'D VILLANUEVA PER MD ORDER, PT TOLERATED WELL. URINAL PROVIDED. NO SIGNIFICANT CHANGES OVERNIGHT. ALL NEEDS MET. BED REMAINS IN LOW/LOCKED POSITION WITH ALL LIGHT IN REACH, BILATERAL UPPER SIDE RAILS IN PLACE. ENDORSED TO DAY SHIFT RN ART.
--- NOTE | 2018-10-12 07:47 | NUR ---
MS RN OPENING NOTES RECEIVE PT IN BED, AWAKE, A/O X4. PT TOLERATING RA, WITH NO ACUTE RESPIRATORY DISTRESS. PT STATED 5/10 PAIN AT THIS MOMENT AND REFUSED TO TAKE PAIN MEDICATION AT THIS MOMENT, PREFERS AFTER BREAKFAST. PT DENIES ANY QUESTIONS OR CONCERNS AT THIS MOMENT. IVF D5 1/2 NS AT 125ML/HR TO LEFT WRIST, INTACT AND INFUSING WELL. HOB ELEVATED. KEPT CALL LIGHT AND FLUID WITHIN REACH. WILL CONTINUE TO MONITOR.
[2018-10-12 08:00] VITALS: BP 150/76
[2018-10-12] MEDS: ZOFRAN 4mg/2ML IV PRN (08:04)
[2018-10-12] MEDS: DOCUSATE SODIUM 100 MG CAPSULE PO SCH ×2 (08:54→16:08)
[2018-10-12] MEDS: FINASTERIDE (5 MG) 5 MG TABLET PO SCH (08:54)
[2018-10-12] MEDS: LOSARTAN POTASSIUM 50 MG TABLET PO SCH ×2 (08:55→16:08)
[2018-10-12] MEDS: ASPIRIN 325 MG TABLET PO SCH ×2 (08:55→16:08)
[2018-10-12] MEDS: SENNOSIDES 8.6 MG TABLET PO SCH (08:55)
[2018-10-12] MEDS: FAMOTIDINE (20 MG) 20 MG TABLET PO SCH ×2 (09:17→21:02)
[2018-10-12] MEDS: oxyCODONE IR immediate release 5 MG PO PRN (10:46)
[2018-10-12 16:00] VITALS: BP 132/68
[2018-10-12] MEDS ORDERED: MUPIROCIN OINT 2% 22 GM TUBE ONE (17:42)
[2018-10-12] MEDS: MUPIROCIN OINT 2% 22 GM TUBE SCH (18:30)
--- NOTE | 2018-10-12 19:38 | NUR ---
MS RN CLOSING NOTES PT IN BED, AWAKE, A/O X4. ON SUPPLEMENTAL OXYGEN AT 2LPM VIA NC, WITH NO ACUTE RESPIRATORY DISTRESS. ON CONTINUOUS O2 SATURATION MONITORING, RESULTING BETWEEN 90-93%. PT DENIES PAIN AT THIS MOMENT. PIV TO RIGHT HAND SL G22, FLUSHED WITH NS INTACT AND OPERATIONAL. HOB ELEVATED. KEPT CALL LIGHT AND FLUID WITHIN REACH. GAVE MOM. PT'S BED KEPT IN LOWEST, LOCKED POSITION WITH SR X2. ENDORSED TO CHEESE FACTORY WORKER NURSE FOR ART.
[2018-10-12 20:00] VITALS: BP 113/61
[2018-10-12] MEDS ORDERED: HYDROMORPHONE INJ 2 MG/ML DISP.SYRIN IM/SC PRN (20:30)
[2018-10-12] MEDS: TAMSULOSIN 0.4 MG CAP.SR.24H PO SCH (21:01)
[2018-10-12] MEDS: METOPROLOL SUCCINATE 25 MG TAB.SR.24H PO SCH (21:02)
[2018-10-12] MEDS: POLYETHYLENE GLYCOL 3350 17 GM POWD.PACK PO SCH (21:02)
[2018-10-12] MEDS: AMLODIPINE BESYLATE 10 MG TABLET PO SCH (21:02)
[2018-10-12] MEDS: ATORVASTATIN 10 MG TABLET PO SCH (21:02)
[2018-10-13] MEDS ORDERED: MAGNESIUM CITRATE 296 ML BOTTLE PO ONE (05:02)
[2018-10-13] MEDS ORDERED: MAGNESIUM CITRATE 296 ML BOTTLE PO PRN (05:30)
[2018-10-13] MEDS ORDERED: POLYETHYLENE GLYCOL 3350 17 GM POWD.PACK PO PRN (05:30)
[2018-10-13] MEDS ORDERED: NA PHOS,M-B/NA PHOS,DI-BA 1 EA ENEMA RC PRN (05:30)
--- NOTE | 2018-10-13 06:29 | NUR ---
MS RN NOTES AWAKE & RESPONSIVE. NOT IN ANY DISTRESS. NO SOB NOTED. DENIES ANY PAIN OR DISCOMFORT AT THIS TIME. WITH IV-HL PATENT & INTACT. MONITORED ACCORDINGLY. CALL LIGHT WITHIN REACH. BED IN LOWEST POSITION. SR UP X 2 FOR SAFETY. WILL ENDORSE TO NEXT SHIFT.
--- NOTE | 2018-10-13 07:38 | NUR ---
MS RN OPENING NOTES RECEIVE PT IN BED, AWAKE, A/O X4. PT ON 2LPM VIA NC, WITH NO ACUTE RESPIRATORY DISTRESS. PT DENIES OF ANY PAIN OR DISCOMFORT AT THIS TIME. PT DENIES ANY QUESTIONS OR CONCERNS AT THIS MOMENT. ADDED/INFORMED RN THAT NIGHT NURSE GAVE SOMETHING TO MAKE HIM GO #2. PIV TO RIGHT HAND, FLUSHED WITH NS, INTACT AND OPERATIONAL. HOB ELEVATED. KEPT CALL LIGHT AND FLUID WITHIN REACH. WILL CONTINUE PLAN OF CARE.
[2018-10-13 08:00] VITALS: BP 120/68
[2018-10-13] MEDS: SENNOSIDES 8.6 MG TABLET PO SCH (09:41)
[2018-10-13] MEDS: ASPIRIN 325 MG TABLET PO SCH (09:41)
[2018-10-13] MEDS: DOCUSATE SODIUM 100 MG CAPSULE PO SCH (09:41)
[2018-10-13] MEDS: FINASTERIDE (5 MG) 5 MG TABLET PO SCH (09:41)
[2018-10-13 09:42] VITALS: BP 120/68
[2018-10-13] MEDS: LOSARTAN POTASSIUM 50 MG TABLET PO SCH (09:42)
[2018-10-13] MEDS: METOPROLOL SUCCINATE 25 MG TAB.SR.24H PO SCH (09:42)
[2018-10-13] MEDS: MUPIROCIN OINT 2% 22 GM TUBE SCH (09:49)
[2018-10-13] MEDS: FAMOTIDINE (20 MG) 20 MG TABLET PO SCH (09:49)
--- NOTE | 2018-10-13 11:30 | NUR ---
MS RN NOTES PT HAD BOWEL MOVEMENT TWICE WITH WATER. PT HAD STOOL SOFTENERS AND LAXATIVES; EFFECTIVE. GOAL MET.
[2018-10-13] MEDS ORDERED: POLY17PO4 PO (13:08)
[2018-10-13] MEDS ORDERED: SENN-168 PO (13:08)
[2018-10-13] MEDS ORDERED: ASPI-992 PO (13:08)
[2018-10-13] MEDS ORDERED: BISA5TAB10 PO (13:08)
[2018-10-13] MEDS ORDERED: OXYC5CAP18 PO (13:08)
[2018-10-13] MEDS ORDERED: DOCU-270 PO (13:08)
[2018-10-13] MEDS ORDERED: ACET325T53 PO (13:08)
--- NOTE | 2018-10-13 16:10 | NUR ---
MS EFFICIENCY EXPERT NOTES PT AWAKE, A/O X4. PT ON 2LPM VIA NC, WITH NO ACUTE RESPIRATORY DISTRESS. PT DENIES OF ANY PAIN OR DISCOMFORT AT THIS TIME. PT TO DISCHARGE TO [facility], CALLED FOR REPORT AND GIVEN TO DAVE SHI. PIV TO RIGHT HAND, REMOVED AND APPLIED DRY DRESSING. PT REFUSED FOR PICTURE TO BE TAKEN FOR LEFT KNEE SURGERY SITE. STATING "NO IT'S OKAY, VISITING NURSE WHO DID THE DRESSING YESTERDAY CAME EARLIER AND SAID IT'S GOOD UNTIL TOMORROW." AND ADDED "I DON'T WANT TO BE IN PAIN FOR NOW, I WANT TO REST. THANK YOU." EXPLAINED PER FACILITY PROTOCOL, PT STILL REFUSED. ALL BELONGINGS WITH THE PT. REVIEWED AND SIGNED DISCHARGE SUMMARY BY PATIENT. ALL NEEDS AND CARE PROVIDED. PT VERBALIZED HAPPY WITH THE CARE PROVIDED. PT TRANSPORTED TO SNF VIA GURNEY WITH 2 MATTRESS AND BOXSPRINGS SUPERVISOR. LEFT THE UNIT AT 1555. CN AND MD AWARE OF DISCHARGE.
== END 2018-10-13 16:04 | DRG 470 ==
LOC: DS 05:41 → MED 05:43 → TELE 12:16 → MED 10-11 18:06
PROVIDERS: ADMIT Student in an Organized Health Care Education/Training Program; ATTEND Nurse Practitioner Acute Care
PROC: 0SRD0J9 Replacement of Left Knee Joint with Synthetic Substitute, Cemented, Open Approach (ICD-10-PCS; principal; 2018-10-10)
DX: M17.12 Unilateral primary osteoarthritis, left knee (principal); H40.9 Unspecified glaucoma; E78.5 Hyperlipidemia, unspecified; I10 Essential (primary) hypertension; E66.9 Obesity, unspecified; K59.00 Constipation, unspecified; N40.0 Benign prostatic hyperplasia without lower urinary tract symptoms
CPT/HCPCS: 36415; 85027-TC; 87081-TC; 88305-TC; 88311-TC; 97110-TC; 97116-TC; 97530-TC; A4217; A6402; C1713; G0378; J0690; J1100; J1170; J2405; J2704; J3010; J3490; J7060; L1830